=== PATIENT | male | born 1940 | race Caucasian/White ===

== ENCOUNTER 2018-09-26 01:27 | Emergency (ER) | payer MEDICARE, OTHER ==
[2018-09-26 01:36] VITALS: PULSE 63; TEMP 98.2
[2018-09-26] MEDS ORDERED: SODIUM CHLORIDE 0.9% 500 ML 500 ML IV STA (02:05)
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
[2018-09-26 02:50] LABS: Basophils # (A) 0.1 k/uL (0-0.2); Basophils % (A) 1 %; Eosinophils # (A) 0.3 k/uL (0-0.7); Eosinophils % (A) 5 %; HCT 41.5 % (39.0-53.0); HGB 14.1 gm/dL (13.0-17.5); Lymphocytes # (A) 1.4 k/uL (1.0-4.8); Lymphocytes % (A) 25 %; MCH 33.6 pg (25.0-35.0); MCHC 34.1 g/dL (31.0-37.0); MCV 98.7 fL (80.0-100.0); Monocytes # (A) 0.3 k/uL (0-1.0); Monocytes % (A) 5 %; Neutrophils # (A) 3.4 k/uL (1.3-7.7); Neutrophils % (A) 61 %; Platelet Count 206 k/uL (150-450); RDW 13.1 % (11.5-15.5); WBC 5.6 k/uL (3.8-10.6)
[2018-09-26 03:07] LABS: ALT 33 U/L (21-72); AST 26 U/L (17-59); Albumin 3.8 g/dL (3.5-5.0); Alkaline Phosphatase 52 U/L (38-126); Amylase 52 U/L (30-110); Anion Gap 7 mmol/L; Blood Urea Nitrogen 20 mg/dL (9-20); Calcium 9.3 mg/dL (8.4-10.2); Carbon Dioxide 25 mmol/L (22-30); Chloride 110 mmol/L (98-107); Glucose 100 mg/dL (74-99); Lipase 87 U/L (23-300); Potassium 4.2 mmol/L (3.5-5.1); Sodium 142 mmol/L (137-145); Total Bilirubin 1.3 mg/dL (0.2-1.3); Total Protein 6.5 g/dL (6.3-8.2)
[2018-09-26 03:57] VITALS: BP 218/98; RESP 20
--- NOTE | 2018-09-26 03:58 | CT ---
EXAMINATION TYPE: CT abdomen pelvis w con DATE OF EXAM: 09/26/2018 COMPARISON: None HISTORY: Rt lower back/abd pain CT DLP: 628.40 mGycm Automated exposure control for dose reduction was used. TECHNIQUE: Helical acquisition of images was performed from the lung bases through the pelvis. CONTRAST: Performed without Oral Contrast and with IV Contrast, patient injected with 100 mL of Isovue 300. FINDINGS: There is some mild infiltrate and atelectasis at the posterior lung bases. Heart appears slightly enl arged. There is no pericardial effusion. There is no pleural effusion. Liver spleen pancreas gallbladder appear normal. Bile ducts are not dilated. Stomach has normal size and contour. There is no adrenal mass. Kidneys show satisfactory contrast opacification. There is mild renal corti natalio thinning. There are multiple bilateral renal calculi that measure up to 6 mm. There is no hydrone phrosis. Ureters are not dilated. There is no retroperitoneal adenopathy. Abdominal aorta is atheroma tous. Bladder distends smoothly. Prostate is mildly enlarged and measures 5 cm. There is prostatic ca lcification. There is no inguinal hernia. There is no free fluid in the pelvis. There is no evidence of a bowel obstruction. I see no intestinal wall thickening. There is no evidence of free air. There is no ascites. There is multilevel spondylotic changes in the lumbar spine. There is mild lumbar dext roscoliosis. Appendix is not seen. There is no sign of appendicitis. IMPRESSION: MULTIPLE NONOBSTRUCTING RENAL CALCULI. ATHEROSCLEROTIC VASCULAR DISEASE. MULTILEVEL LUMBAR SPONDYLOTI C CHANGE. NO FRACTURE. MILD INFILTRATES AND ATELECTASIS AT THE LUNG BASES.
[2018-09-26] MEDS ORDERED: ACET/COD 300 MG/30 MG STARTER PACK 6 TAB BTL PO STA (04:06)
[2018-09-26 04:14] LABS: Appearance,Urine Clear (Clear); Bilirubin,Urine Negative (Negative); Blood,Urine Negative (Negative); Color,Urine Yellow; Glucose,Urine (UA) Negative (Negative); Ketones,Urine Negative (Negative); Leukocyte Esterase,Urine Negative (Negative); Nitrite,Urine Negative (Negative); Protein,Urine Trace (Negative); Specific Gravity,Urine 1.034 (1.001-1.035); Urobilinogen,Urine <2.0 mg/dL (<2.0)
== END 2018-09-26 04:43 | disposition home or self-care (01) ==
LOC: EC 01:27
DX: M54.5 Low back pain (principal); N20.0 Calculus of kidney; I70.0 Atherosclerosis of aorta; M47.816 Spondylosis without myelopathy or radiculopathy, lumbar region; J98.11 Atelectasis; R91.8 Other nonspecific abnormal finding of lung field
CPT/HCPCS: 36415; 80053; 82150; 83605; 83690; 85025; 81003; 74177; 99284; 96360; 96361; Q9967

== ENCOUNTER 2021-01-01 15:55 | Inpatient (IN) | payer MEDICARE, OTHER ==
[2021-01-01 16:21] LABS: Glucose,Whole Blood 94 mg/dL (75-99)
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
[2021-01-01 16:34] LABS: Basophils # (A) 0.1 k/uL (0-0.2); Basophils % (A) 1 %; Eosinophils # (A) 0.3 k/uL (0-0.7); Eosinophils % (A) 4 %; HCT 40.8 % (39.0-53.0); Lymphocytes # (A) 1.4 k/uL (1.0-4.8); Lymphocytes % (A) 20 %; MCH 34.5 pg (25.0-35.0); MCHC 34.4 g/dL (31.0-37.0); MCV 100.3 fL (80.0-100.0); Mean Platelet Volume 7.3; Monocytes # (A) 0.4 k/uL (0-1.0); Monocytes % (A) 6 %; Neutrophils # (A) 4.9 k/uL (1.3-7.7); Neutrophils % (A) 68 %; Platelet Count 253 k/uL (150-450); RBC 4.07 m/uL (4.30-5.90); WBC 7.2 k/uL (3.8-10.6)
[2021-01-01 16:44] LABS: INR 0.9 (<1.2); Partial Thromboplastin Time 23.2 sec (22.0-30.0); Prothrombin Time 10.2 sec (9.0-12.0)
[2021-01-01 16:48] LABS: Albumin 4.4 g/dL (3.5-5.0); Calcium 9.3 mg/dL (8.4-10.2); Potassium 4.7 mmol/L (3.5-5.1); Total Bilirubin 0.9 mg/dL (0.2-1.3); Total Protein 7.4 g/dL (6.3-8.2)
--- NOTE | 2021-01-01 17:10 | CT ---
EXAMINATION TYPE: CT brain wo con for TPA DATE OF EXAM: 01/01/2021 COMPARISON: None HISTORY: Weakness and fatigue per patient family. CT DLP: 1103.4 mGycm Automated exposure control for dose reduction was used. There is cerebral cortical atrophy. There is hypodensity in the periventricular white matter. There i s no mass effect nor mid line shift. There is no sign of intracranial hemorrhage. Calvarium is intact . Skull base is intact. There is normal aeration of the mastoid sinuses. IMPRESSION: Cerebral atrophy and chronic small vessel ischemia. No acute intracranial abnormality.
--- NOTE | 2021-01-01 17:11 | XR ---
EXAMINATION TYPE: XR chest 2V DATE OF EXAM: 01/01/2021 COMPARISON: NONE HISTORY: Altered mental status TECHNIQUE: 2 views FINDINGS: There is no heart failure nor confluent pneumonic infiltrate. Costophrenic angles are clear . There are no hilar masses. Thoracic aorta is atheromatous. IMPRESSION: No active cardiopulmonary disease. Atheromatous aorta.
[2021-01-01 17:28] LABS: Appearance,Urine Clear (Clear); Bilirubin,Urine Negative (Negative); Blood,Urine Negative (Negative); Color,Urine Yellow; Glucose,Urine (UA) Negative (Negative); Ketones,Urine Negative (Negative); Leukocyte Esterase,Urine Negative (Negative); Nitrite,Urine Negative (Negative); PH, Urine 6.5 (5.0-8.0); Protein,Urine Negative (Negative); Specific Gravity,Urine 1.014 (1.001-1.035); Urobilinogen,Urine <2.0 mg/dL (<2.0)
[2021-01-01] MEDS ORDERED: ASPIRIN 325 MG TAB PO STA (18:24)
[2021-01-01] MEDS: SODIUM CHLORIDE 0.9% 1,000 ML IV SCH (18:49)
--- NOTE | 2021-01-01 21:28 | US ---
EXAMINATION TYPE: US carotid duplex BILAT DATE OF EXAM: 01/01/2021 COMPARISON: CT Brain. CLINICAL HISTORY: Stenosis. Stenosis per order. Hx hypertension. EXAM MEASUREMENTS: RIGHT: Peak Systolic Velocity (PSV) cm/sec ----- Right CCA: 62.2 ----- Right ICA: 123.6 ----- Right ECA: 123.2 ICA/CCA ratio: 2.0 RIGHT: End Diastole cm/sec ----- Right CCA: 15.1 ----- Right ICA: 40.3 ----- Right ECA: 8.6 LEFT: Peak Systolic Velocity (PSV) cm/sec ----- Left CCA: 93.8 ----- Left ICA: 70.9 ----- Left ECA: 62.2 ICA/CCA ratio: 0.8 LEFT: End Diastole cm/sec ----- Left CCA: 21.2 ----- Left ICA: 17.7 ----- Left ECA: 7.2 VERTEBRALS (direction of flow): Right Vertebral: Antegrade Left Vertebral: Antegrade Rhythm: Arrhythmia Plaque visualized within bilateral CCA, bilateral bulb, bilateral ICA, and bilateral ECA. Multiple EC A branches seen on the left. No elevated velocities at this time. ICA/CCA ratio on the right is 2.0 a nd ICA/CCA ratio on the left is 0.8. IMPRESSION: There is borderline elevated velocity in the right internal carotid artery that is suggestive of clos ed to 50% stenosis of the right internal carotid artery. There is antegrade flow in the vertebral arteries. Criteria for Assigning % of Stenosis / Diameter reduction (Estimation based on the indirect measurements of the internal carotid artery velocities (ICA PSV). 1. Normal (no stenosis)=ICA PSV < 125 cm/s: ratio < 2.0: ICA EDV<40 cm/s. 2. Less than 50% stenosis=ICA PSV < 125 cm/s: ratio < 2.0: ICA EDV<40 cm/s. 3. 50 to 69% stenosis=ICA PSV of 125 to 230 cm/s: ration 2.0 ? 4.0: ICA EDV 40-100 cm/s. 4. Greater than 70% stenosis to near occlusion= ICA PSV > 230 cm/s: ratio > 4.0: ICA EDV > 100 cm/s. 5. Near occlusion= ICA PSV velocities may be low or undetectable: variable ratio and ICA EDV. 6. Total occlusion=unable to detect flow.
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
[2021-01-02 03:51] LABS: Cholesterol 178 mg/dL (<200); HDL Cholesterol 52 mg/dL (40-60); LDL Cholesterol,Calculated 109 mg/dL (0-99); Triglycerides 83 mg/dL (<150)
[2021-01-02] MEDS: SODIUM CHLORIDE 0.9% 1,000 ML IV SCH ×2 (06:05→17:42)
[2021-01-02] MEDS: LOSARTAN 50 MG TAB PO SCH (09:32)
[2021-01-02] MEDS: HEPARIN SODIUM,PORCINE/PF 5,000 UNIT/0.5 ML SYRINGE SQ SCH ×3 (09:33→23:50)
[2021-01-02 09:47] LABS: Basophils # (A) 0.1 k/uL (0-0.2); Basophils % (A) 1 %; Eosinophils # (A) 0.2 k/uL (0-0.7); Eosinophils % (A) 3 %; HCT 40.8 % (39.0-53.0); HGB 13.5 gm/dL (13.0-17.5); Lymphocytes # (A) 1.3 k/uL (1.0-4.8); Lymphocytes % (A) 18 %; MCH 33.6 pg (25.0-35.0); MCHC 33.1 g/dL (31.0-37.0); MCV 101.6 fL (80.0-100.0); Macrocytosis Slight; Mean Platelet Volume 7.3; Monocytes # (A) 0.3 k/uL (0-1.0); Monocytes % (A) 4 %; Neutrophils # (A) 5.3 k/uL (1.3-7.7); Neutrophils % (A) 73 %; Platelet Count 253 k/uL (150-450); RBC 4.02 m/uL (4.30-5.90); RDW 13.2 % (11.5-15.5); WBC 7.2 k/uL (3.8-10.6)
[2021-01-02 09:53] LABS: Calcium 9.2 mg/dL (8.4-10.2); Magnesium 2.1 mg/dL (1.6-2.3); Potassium 4.5 mmol/L (3.5-5.1)
--- NOTE | 2021-01-02 12:00 | ECHOF ---
Referral Reason:Thrombus MEASUREMENTS -------- HEIGHT: 157.5 cm WEIGHT: 58.1 kg BP: 160/79 RVIDd: 3.0 cm (< 3.3) IVSd: 1.3 cm (0.6 - 1.1) LVIDd: 3.3 cm (3.9 - 5.3) LVPWd: 1.6 cm (0.6 - 1.1) IVSs: 1.9 cm LVIDs: 1.7 cm LVPWs: 2.2 cm LAESV Index (A-L): 26.14 ml/m Ao Diam: 3.3 cm (2.0 - 3.7) AV Cusp: 1.7 cm (1.5 - 2.6) MV E Rohan: 0.78 m/s MV DecT: 309 ms MV A Rohan: 0.87 m/s MV E/A Ratio: 0.90 AV maxP.26 mmHg AV meanP.40 mmHg RAP: 5.00 mmHg RVSP: 20.70 mmHg FINDINGS -------- Sinus rhythm. This was a technically adequate study. The left ventricular size is normal. There is mild concentric left ventricular hypertrophy. Overa ll left ventricular systolic function is normal with, an EF between 55 - 60 %. The right ventricle is normal in size. Normal LA size by volume 22+/-6 ml/m2. The right atrium was not well visualized. Interatrial and interventricular septum intact. Trace to mild aortic regurgitation. There is moderate aortic stenosis present. Peak/mean gradient across the Aortic Valve is 37.26mmHg / 20.40mmHg. Mild mitral annular calcification present. Mild mitral regurgitation is present. Mild tricuspid regurgitation present. There is no evidence of pulmonary hypertension. The right v entricular systolic pressure, as measured by Doppler, is 20.70mmHg. There is no pulmonic regurgitation present. The aortic root size is normal. IVC Not well visulized. There is no pericardial effusion. CONCLUSIONS -------- 1. The left ventricular size is normal. 2. There is mild concentric left ventricular hypertrophy. 3. Overall left ventricular systolic function is normal with, an EF between 55 - 60 %. 4. Trace to mild aortic regurgitation. 5. There is moderate aortic stenosis present. 6. Peak/mean gradient across the Aortic Valve is 37.26mmHg / 20.40mmHg. 7. Mild mitral annular calcification present. 8. Mild mitral regurgitation is present. 9. Mild tricuspid regurgitation present. SERVICE ORDER CLERK: Shireen Turner RDCS
--- NOTE | 2021-01-02 14:37 | MR ---
EXAMINATION TYPE: MR brain wo/w con DATE OF EXAM: 01/02/2021 COMPARISON: 01/01/2021 HISTORY: Confusion, CVA CONTRAST: Performed utilizing 6 mL intravenous Gadavist gadolinium contrast. TECHNIQUE: Multiplanar, multiecho imaging on a 3.0 Lin magnet is performed through the brain. Stud y is performed within 24 hours of arrival to the hospital. The craniovertebral junction is normal. The pituitary is normal. Diffusion-weighted imaging is performed. There are scattered small hyperintensities within the thala mus inferior left occipital and posterior parietal lobes and within the bilateral occipital lobes. On T2-weighted sequences there is patchy to confluent periventricular white matter hyperintensities w ith additional scattered hyperintensities within subcortical white matter and brainstem. No suspicious enhancement is evident. Ventricles and sulci are prominent for the patient age. IMPRESSIONS: 1. Scattered hyperintensities predominantly within the left thalamus, posterior left parietal, left o ccipital region with additional punctate area on the right occipital region. Small foci of acute isch emic changes should be considered. 2. Atrophy with confluent periventricular white matter ischemic-type changes.
[2021-01-02 16:13] LABS: Hemoglobin A1C 5.1 % (4.0-6.0)
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
[2021-01-02] MEDS: CLOPIDOGREL 75 MG TAB PO SCH (17:36)
[2021-01-02] MEDS: ATORVASTATIN 40 MG TAB PO SCH (21:26)
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
[2021-01-03] MEDS: CLOPIDOGREL 75 MG TAB PO SCH (08:41)
[2021-01-03] MEDS: ASPIRIN 325 MG TAB PO SCH (08:41)
[2021-01-03] MEDS: LOSARTAN 50 MG TAB PO SCH (08:41)
[2021-01-03] MEDS: HEPARIN SODIUM,PORCINE/PF 5,000 UNIT/0.5 ML SYRINGE SQ SCH ×3 (08:41→22:52)
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
[2021-01-03] MEDS: ATORVASTATIN 40 MG TAB PO SCH (20:20)
[2021-01-04] MEDS: CLOPIDOGREL 75 MG TAB PO SCH (08:08)
[2021-01-04] MEDS: hydrALAZINE HCL 25 MG TAB PO SCH ×2 (08:08→20:44)
[2021-01-04] MEDS: ASPIRIN 325 MG TAB PO SCH (08:08)
[2021-01-04] MEDS: HEPARIN SODIUM,PORCINE/PF 5,000 UNIT/0.5 ML SYRINGE SQ SCH ×3 (08:08→23:26)
[2021-01-04] MEDS: LOSARTAN 50 MG TAB PO SCH (08:08)
--- NOTE | 2021-01-04 08:30 | CONS ---
CONSULTATION HISTORY OF PRESENT ILLNESS: Sanjeev Serra the 80-year-old gentleman who came in with acute confusional state and a diagnosis was made of an acute CVA, probably of an embolic type CVA involving the left thalamus, left occipital and parietal lobes with confusion and altered behavior. However, the patient is more comfortable now. His blood pressure is still a little bit elevated, but he seems to be more calmer and answers questions fairly appropriately. He has underlying problems in the form of hypertension, hyperlipidemia, mild to moderate aortic stenosis. The stroke is fairly acute based on the MRI. He is resting comfortably without symptoms. He has no chest pain or shortness of breath and his confusion also seems to be much better. PAST MEDICAL HISTORY: 1. Hypertension. 2. Hyperlipidemia. 3. Aortic stenosis, probably moderate. 4. No evidence of prior IA or CVA. 5. Past medical history is remarkable for a previous TIA as well, although details are unclear. 6. He has no documented evidence of atrial fibrillation and no major surgeries. This patient also had an echocardiogram on Tuesday, which revealed normal LV size and systolic function with mild to moderate aortic stenosis, a mean gradient of 20 mmHg without pulmonary hypertension. PHYSICAL EXAMINATION: On examination, blood pressure is 160/80, pulse rate is about 80 per minute, regular. HEENT unremarkable. Fundus was not examined by me. NECK is supple. There is no JVD. HEART exam reveals S1, S2 with ejection systolic murmur suggestive of aortic stenosis. Second heart sound is preserved. LUNGS reveal decent air entry. ABDOMEN is soft. Lower EXTREMITIES reveal diminished pulses. CENTRAL NERVOUS SYSTEM exam was not performed in detail, but no motor deficits. EKG revealed sinus mechanism, left axis, IVCD, LVH. IMPRESSION: 1. Acute ischemic stroke, probably embolic. No evidence of atrial fibrillation. Carotid Doppler does not suggest a significant disease. 2. Hypertension. 3. Hyperlipidemia. 4. History of aortic stenosis, moderate. RECOMMENDATIONS: I agree with losartan, atorvastatin, aspirin and Plavix. I will add a small dose of hydralazine 25 mg b.i.d. I will arrange for a transesophageal echo for Tuesday. I explained this to the patient. He will also need a 30 day event monitor as well. Thank you very much for the consult. MMODL / IJN: [id number] /
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
--- NOTE | 2021-01-04 14:37 | PN ---
PROGRESS NOTE Mr. Serra is doing okay. He is in sinus rhythm. Neurological there are no focal deficits. His confusion is better. Given his possible embolic stroke, we will do a transesophageal echo tomorrow. I will request Dr. Huber to perform procedure. Vitals are stable. No JVD. S1-S2 heard normally. Short systolic murmur noted. Rhythm is regular. Lungs are clear. Abdomen and lower extremity exam unchanged. I would recommend a transesophageal echo and a 30 day event monitor for this patient. I discussed my thoughts in detail with him and will request Dr. Huber to perform the procedure. MMODL / IJN: [id number] /
--- NOTE | 2021-01-04 17:42 | P.PN ---
Subjective Progress Note Date: 01/04/21 The patient is an 80-year-old male who is seen in neurologic follow-up on January 04, 2021, via teleneurology. The patient's chart has been reviewed. According to the patient's nurse, the patient has been doing well. He is apparently at his baseline cognitive function. He has been up walking without assistance, to the bathroom. She reports that he was slightly unsteady, however did not require any assistance. MRI of the brain reveals bilateral focal, acute infarcts thought to be embolic in etiology. Patient is scheduled for a transesophageal echocardiogram, tomorrow morning (January 05, 2021). The patient reports feeling fine today. The patient denies headache. Objective - Vital Signs Vital signs: Vital Signs Temp 98.3 F 01/04/21 15:44 Pulse 63 01/04/21 15:44 Resp 17 01/04/21 15:44 BP 134/64 01/04/21 15:44 Pulse Ox 97 01/04/21 15:44 Intake & Output 01/03/21 01/04/21 01/04/21 18:59 06:59 18:59 Intake Total 1520 480 Balance 1520 480 Weight 56.2 kg Intake: Oral 1520 480 Other: # Voids 1 3 # Bowel Movements 0 - Exam Gen.: Patient is reclining in the bed. He is in no acute distress. He is a thin male. HEENT: Head is atraumatic, normocephalic. Fundus not visualized. There is no scleral icterus. Mucous membranes are moist. Neurological examination Motor: Strength is 5/5 throughout. Coordination: Ctvzjo-ncal-ykolhg and unwz-gn-jrms testing is intact - Labs CBC & Chem 7: 01/02/21 09:19 01/02/21 09:19 Assessment and Plan Assessment: 1. Bilateral focal, acute ischemic infarcts, likely embolic in etiology 2. History of stroke/TIA 3. History of hypertension 4. No reported history of atrial fibrillation Plan: 1. Await transesophageal echocardiogram results 2. Agree with Holter monitor and/or a loop recorder if needed Time with Patient: Less than 30 (spent 20 minutes with patient via teleneurology)
[2021-01-04] MEDS: ATORVASTATIN 40 MG TAB PO SCH (20:44)
[2021-01-05] MEDS: ASPIRIN 325 MG TAB PO SCH (08:57)
[2021-01-05] MEDS: hydrALAZINE HCL 25 MG TAB PO SCH (08:57)
[2021-01-05] MEDS: LOSARTAN 50 MG TAB PO SCH (08:57)
[2021-01-05] MEDS: HEPARIN SODIUM,PORCINE/PF 5,000 UNIT/0.5 ML SYRINGE SQ SCH ×3 (08:57→23:37)
[2021-01-05] MEDS: CLOPIDOGREL 75 MG TAB PO SCH (08:57)
[2021-01-05] MEDS ORDERED: SODIUM CHLORIDE 0.9% 500 ML 500 ML IV ONE (10:00)
[2021-01-05] MEDS: BENZOCAINE SPRAY 1 CAN MUCOUS MEM ONE ×2 (10:01→10:06)
[2021-01-05] MEDS: MIDAZOLAM 2 MG/2 ML VIAL IV ONE ×2 (10:05→10:07)
[2021-01-05] MEDS ORDERED: fentaNYL (PF) 50 MCG/ML 2 ML AMP IV ONE (10:05)
--- NOTE | 2021-01-05 10:42 | P.TEE ---
Date of Procedure: 01/05/21 Preoperative Diagnosis: CVA/TIA Postoperative Diagnosis: Moderate aortic stenosis/moderate aortic regurgitation Procedure(s) Performed: DAVE Description of Procedure(s): INDICATION: This is a 80-year-old gentleman was admitted to the hospital with CVA. Patient is advised to have DAVE examination to rule out any Cardec source of emboli . Transthoracic echo [place] showed moderate aortic stenosis CONSENT:. Informed verbal consent is obtained from the patient. PROCEDURE: Patient was brought to the lab in a fasting state. He was prepped and draped in the usual fashion. A lubricated Omni probe was introduced into the oropharynx, which was sprayed with Cetacaine. The probe was advanced into the esophagus and multiple views were obtained both from esophagus and stomach. Patient tolerated the procedure well. Color, pulsed and continuous wave Doppler studies were performed. Saline contrast bubble injection is performed. Procedure time was 11 minutes. Patient was given Versed 2 mg and fentanyl 25 g FINDINGS:. The aortic valve is sclerotic with thickened leaflets and reduced opening excursion. By planimetry valve area of about 1-1.1 was obtained suggestive of moderate aortic stenosis. Peak gradient of 54 with a mean of 23 was obtained, again consistent with moderate aortic stenosis. There is moderate central aortic regurgitation. Mild mitral regurgitation with mildly thickened mitral valves. The left atrial appendage is free of any clot. The interatrial septum is intact without any spontaneous shunt. Injection was contrast bubble did not show any crossing of the bubbles across septum. The left ventricle function appear to be normal. The atrial size appeared within normal. There is a mixed plaque in the aorta which is moderate IMPRESSION: #1. Moderate aortic stenosis/moderate aortic regurgitation. #2. Mild mitral regurgitation. #3. No clot in the left atrial appendage. #4. No PFO #5. Left ankle function is normal. #6. There is a mixture plaque in the aorta which is moderate PLAN: Generic maximum medical therapy. Serial echoes for progressive of aortic stenosis
[2021-01-05] MEDS ORDERED: SODIUM CHLORIDE 0.9% 1,000 ML IV SCH (10:45)
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
[2021-01-05] MEDS: hydroCHLOROthiazide 12.5 MG CAP PO SCH (14:07)
--- NOTE | 2021-01-05 15:16 | P.PN ---
Subjective This is a 80-year-old gentleman with a past medical history of hypertension was admitted to the hospital for acute confusional state. Found to have acute CVA, probably of embolic type CVA involving the left thalamus, left occipital and parietal lobes. We have been consult for DAVE procedure to rule out any Cardec source of emboli . Transthoracic echo Cardigan showed EF 55-60%, moderate aortic stenosis with a peak/mean gradient 37 mmHg/20.4 mmHg, moderate mitral regurgitation, mild tricuspid regurgitation. Patient has not had any evidence on telemetry of atrial fibrillation while inpatient. MRI of the brain revealed scattered hyperintensities within the left thalamus, posterior left parietal, left occipital region with additional area of the right occipital region. Small foci of acute ischemic changes should be considered. Carotid dopplers negative for high grade stenosis 01/05/21: Patient underwent DAVE with Dr. Huber today which revealed moderate aortic stenosis/moderate aortic regurgitation, mild mitral regurgitation, no clot in the left atrial appendage, no PFO, there is a mixture plaque in the aorta which is moderate. Patient seen and examined at bedside, no acute distress. Blood pressure 135/68, heart rate 60s, maintaining oxygen saturations 96% on room air. Telemetry reviewed patient continues to be in sinus mechanism, no evidence of atrial fibrillation or arrhythmia. GENERAL: Well-appearing, well-nourished and in no acute distress. NECK: Supple without JVD or thyromegaly. LUNGS: Breath sounds clear to auscultation bilaterally. Respiration equal and unlabored. No wheezes, rales or rhonchi. HEART: Regular rate and rhythm. Systolic murmur noted. No rubs or gallops. S1 and S2 heard. EXTREMITIES: Normal range of motion, no edema. No clubbing or cyanosis. Peripheral pulses intact. ASSESSMENT Acute ischemic stroke- per neuro MRI brain is suggestive of cardioembolism Elevated troponin not indicative of myocardial injury Hypertension Hyperlipidemia Moderate aortic stenosis PLAN Will start hydrochlorothiazide 12.5mg daily Continue losartan 100mg daily Patient also started on aspirin, plavix and statin Patient would benefit from a loop recorder before discharge to rule out atrial fibrillation. We will discuss with patient and plan a time for insertion, possibly tomorrow. Maintain cardiac telemetry Nurse Practitioner note has been reviewed, I agree with a documented findings and plan of care. Patient was seen and examined. Objective - Vital Signs Vital signs: Vital Signs Temp 98.1 F 01/05/21 08:00 Pulse 60 01/05/21 11:19 Resp 21 01/05/21 10:18 BP 160/72 01/05/21 12:00 Pulse Ox 96 01/05/21 11:19 Intake & Output 01/04/21 01/05/21 01/05/21 18:59 06:59 18:59 Intake Total 720 100 Balance 720 100 Weight 57 kg Intake: IV 100 Oral 720 0 Other: # Voids 1 # Bowel Movements 0 - Labs CBC & Chem 7: 01/02/21 09:19 01/02/21 09:19
--- NOTE | 2021-01-05 18:29 | P.PN ---
Subjective Progress Note Date: 01/05/21 I am Seeing the patient for the first time. Please refer to Dr. Waters's note as well as Dr. Simmons's notes for detailed neurology history. He feels he is doing fairly well and denies any new neurological problems. He had a transesophageal echocardiogram today and it is reported as moderate aortic stenosis last moderate aortic regurgitation. Mild mitral regurgitation. No clot in the left atrial appendage. No PFO. There is a mixture plaque in the aorta which is moderate. Objective - Vital Signs Vital signs: Vital Signs Temp 98.1 F 01/05/21 08:00 Pulse 60 01/05/21 11:19 Resp 21 01/05/21 10:18 BP 160/72 01/05/21 12:00 Pulse Ox 96 01/05/21 11:19 Intake & Output 01/04/21 01/05/21 01/05/21 18:59 06:59 18:59 Intake Total 720 318 Balance 720 318 Weight 57 kg Intake: IV 100 Oral 720 218 Other: # Voids 1 2 # Bowel Movements 0 - Exam Gen.: Patient is reclining in the bed. He is in no acute distress. He is a thin male. Neurological examination Higher mental function: The patient is awake, alert but somehwat slow in menta tion and latency time to answer question. He is oriented to self, knows he is in hospital but does not know year (stated it was 2013). Follow simple commands. No aphasia. On cranial examination, pupils are round and reacting to light, visual [place]wood are full on confrontation, extraocular muscles are intact with no nystagmus. Facial sensation normal. Face is symmetric, tongue protrudes to the midline. Moderate hard of hearing over bilateral ears. No dysarthria. Shoulder shrug normal. Motor: Strength is 5/5 throughout. Tone and bulk are normal Sensory: To light touch is equal and no neglect. Coordination: [id number] and [id number] testing is intact Reflexes: 1+ throughout. - Labs CBC & Chem 7: 01/02/21 09:19 01/02/21 09:19 Assessment and Plan Assessment: 1. Bilateral focal, acute ischemic infarcts, likely embolic in etiology 2. History of stroke/TIA 3. History of hypertension 4. No reported history of atrial fibrillation Plan: * MRI of the brain confirmed acute stroke. There are scattered hyperintensities predominantly within the left thalamus, posterior left parietal, left occipital region with additional punctate area on the right occipital region. The strokes involved bilateral hemispheric region, therefore is most likely embolic in nature. Need to identify cardiac source of cerebral embolism. * He had a transesophageal echocardiogram today and it is reported as moderate aortic stenosis last moderate aortic regurgitation. Mild mitral regu rgitation. No clot in the left atrial appendage. No PFO. There is a mixture plaque in the aorta which is moderate. * Carotid Doppler revealed borderline elevated velocity in the right ICA suggestive of close to 50% stenosis. Antegrade flow in the vertebral arteries. * Hemoglobin A1c 5.1 * Lipid panel with cholesterol 178, LDL 109, HDL 52 and triglycerides 83. Agree with starting Lipitor 40 mg. * PT and OT evaluate gait. Speech therapy. * Patient was on aspirin 81 mg daily. Continue dual antiplatelet medication. After 3 weeks, stop aspirin and maintain on Plavix monotherapy. Continue Lipitor 40mg qhs. * I recommend a Holter monitor/and or loop recorder and the patient needs to follow up with cardiology as an outpatient. * The patient needs to follow-up with a neurologist as outpatient within 1-2 weeks. Daniel Beard MD Neuro-Hospitalist Time with Patient: Less than 30
[2021-01-05] MEDS: ATORVASTATIN 40 MG TAB PO SCH (20:14)
[2021-01-05 20:19] VITALS: RESP 18
[2021-01-06] MEDS ORDERED: SODIUM CHLORIDE 0.9% 1,000 ML IV SCH ×2 (07:00)
[2021-01-06 08:43] LABS: Basophils # (A) 0.1 k/uL (0-0.2); Basophils % (A) 1 %; Eosinophils # (A) 0.1 k/uL (0-0.7); Eosinophils % (A) 1 %; HCT 41.7 % (39.0-53.0); Lymphocytes # (A) 1.1 k/uL (1.0-4.8); Lymphocytes % (A) 12 %; MCH 34.6 pg (25.0-35.0); MCHC 33.6 g/dL (31.0-37.0); Macrocytosis Slight; Mean Platelet Volume 7.2; Monocytes # (A) 0.5 k/uL (0-1.0); Monocytes % (A) 6 %; Neutrophils # (A) 7.7 k/uL (1.3-7.7); Neutrophils % (A) 80 %; Platelet Count 234 k/uL (150-450); RBC 4.05 m/uL (4.30-5.90); WBC 9.7 k/uL (3.8-10.6)
[2021-01-06 08:54] LABS: Calcium 9.1 mg/dL (8.4-10.2); Potassium 4.4 mmol/L (3.5-5.1)
[2021-01-06] MEDS ORDERED: ASPIRIN 81 MG PO SCH (09:00)
[2021-01-06] MEDS: CLOPIDOGREL 75 MG TAB PO SCH (09:18)
[2021-01-06] MEDS: hydroCHLOROthiazide 12.5 MG CAP PO SCH (09:18)
[2021-01-06] MEDS: HEPARIN SODIUM,PORCINE/PF 5,000 UNIT/0.5 ML SYRINGE SQ SCH (09:18)
[2021-01-06] MEDS: LOSARTAN 50 MG TAB PO SCH (09:18)
[2021-01-06 10:40] VITALS: TEMP 98
[2021-01-06] MEDS ORDERED: MIDAZOLAM 2 MG/2 ML VIAL IV ONE (11:10)
[2021-01-06] MEDS ORDERED: LIDOCAINE 1% INJ 10MG/ML (20 ML MDV) SQ ONE (11:14)
--- NOTE | 2021-01-06 11:28 | P.PN ---
Subjective This is a 80-year-old gentleman with a past medical history of hypertension was admitted to the hospital for acute confusional state. Patient does not follow with a pecan huller. Found to have acute CVA, probably of embolic type CVA involving the left thalamus, left occipital and parietal lobes. We have been consult for DAVE procedure to rule out any Cardec source of emboli . Transthoracic echo Cardigan showed EF 55-60%, moderate aortic stenosis with a peak/mean gradient 37 mmHg/20.4 mmHg, moderate mitral regurgitation, mild tricuspid regurgitation. Patient has not had any evidence on telemetry of atrial fibrillation while inpatient. MRI of the brain revealed scattered hyperintensities within the left thalamus, posterior left parietal, left occipital region with additional area of the right occipital region. Small foci of acute ischemic changes should be considered. Carotid dopplers negative for high grade stenosis 01/05/21: Patient underwent DAVE with Dr. Huber today which revealed moderate aortic stenosis/moderate aortic regurgitation, mild mitral regurgitation, no clot in the left atrial appendage, no PFO, there is a mixture plaque in the aorta which is moderate. Patient seen and examined at bedside, no acute distress. Blood pressure 135/68, heart rate 60s, maintaining oxygen saturations 96% on room air. Telemetry reviewed patient continues to be in sinus mechanism, no evidence of atrial fibrillation or arrhythmia. 01/06/21: Patient seen and examined at bedside, no acute distress, plan for loop recorder today. Patient is alert and oriented to person and place. Blood pressure 158/74, heart rate 61, afebrile, maintaining saturations 96% on room air. Telemetry reviewed patient continues to be in sinus mechanism heart rate 50 to 60s, no evidence of atrial fibrillation or arrhythmia. Patient currently maintained on aspirin 81 mg daily, atorvastatin 40 mg nightly, Plavix 75 mg daily, hydrochlorothiazide 12.5 mg daily, losartan 100 mg daily. Laboratory data reviewed sodium 139, potassium 4.4, serum creatinine 1.17, BUN 20, magnesium 2.0, WBC 9.7, hemoglobin 14, platelets 234 GENERAL: Well-appearing, well-nourished and in no acute distress. Appears comfortable NECK: Supple without JVD or thyromegaly. LUNGS: Breath sounds clear to auscultation bilaterally. Respiration equal and unlabored. No wheezes, rales or rhonchi. HEART: Regular rate and rhythm. Systolic murmur noted. No rubs or gallops. S1 and S2 heard. EXTREMITIES: Normal range of motion, no edema. No clubbing or cyanosis. Peripheral pulses intact. ASSESSMENT Acute ischemic stroke- per neuro MRI brain is suggestive of cardioembolism Elevated troponin not indicative of myocardial injury Hypertension Hyperlipidemia Moderate aortic stenosis PLAN Plan for loop recorder insertion today. Spoke with patient's about procedure, risks and benefits. She agreed to proceed with loop recorder, and will consent for the patient. I have discussed the risks, benefits and alternative therapies for the loop recorder procedure with the patient and his , Bonnie, and for both sedation/analgesia as well as necessary blood product administration, if indicated, as they pertain to this patient. The has indicated understanding and acceptance of the risks and procedures discussed. Questions have been answered appropriately and and patient is agreeable to move forward with the above-stated procedure. Continue hydrochlorothiazide 12.5mg daily and losartan 100mg daily Patient also started on aspirin, plavix and statin Once medically stable for discharge, patient will follow up with Dr. Jones in the office Nurse Practitioner note has been reviewed, I agree with a documented findings and plan of care. Patient was seen and examined. Objective - Vital Signs Vital signs: Vital Signs Temp 98.0 F 01/06/21 08:00 Pulse 61 01/06/21 08:00 Resp 18 01/06/21 04:00 BP 158/74 01/06/21 08:00 Pulse Ox 96 01/06/21 08:00 Intake & Output 01/05/21 01/06/21 01/06/21 18:59 06:59 18:59 Intake Total 318 118 0 Output Total 550 Balance 318 -432 0 Weight 59.5 kg Intake: IV 100 Oral 218 118 0 Output: Urine 150 Stool 400 Other: # Voids 2 1 # Bowel Movements 3 - Labs CBC & Chem 7: 01/06/21 08:18 01/06/21 08:18 Labs: Abnormal Lab Results - Last 24 Hours (Table) 01/06/21 01/06/21 Range/Units 08:18 08:18 RBC 4.05 L (4.30-5.90) m/uL MCV 103.0 H (80.0-100.0) fL Glucose 107 H (74-99) mg/dL
--- NOTE | 2021-01-06 11:32 | P.EPPROC ---
- EP Procedure Note Electrophysiology Procedure Note: Loop monitor implant Indication: Cryptogenic stroke Patient was brought to the EP lab in a fasting state. Written informed consent was obtained prior to the procedure. The left pectoral area was prepped and draped per protocol. Intravenous antibiotic was administered preoperatively. A subcutaneous Loop monitor was implanted successfully and the wound was closed per protocol. The device was programmed to detect significant val- arrhythmic and tachy-arrhythmic events, per protocol. Device and programming details: Programming for cryptogenic stroke/A. fib detection diagnosed Patient underwent EP procedure under conscious sedation/moderate sedation, monitoring of the level of consciousness and physiologic parameters including but not limited to vital signs and oxygenation. Patient tolerated the procedure well without any acute complications. Start time: 1113 Stop time: 1127
[2021-01-06 12:39] VITALS: BMI 24.0
[2021-01-06 13:13] VITALS: BP 144/91; PULSE 60
--- NOTE | 2021-01-06 13:38 | FL ---
EXAMINATION TYPE: FL barium swallow w video DATE OF EXAM: 01/06/2021 MODIFIED SWALLOW / DEGLUTITION STUDY CLINICAL HISTORY: Dysphagia. TECHNIQUE: Deglutition study is performed utilizing thin liquid barium, honey and nectar thick liqui d barium, barium thick applesauce, and barium coated cracker. COMPARISON: None. FINDINGS: The oral and pharyngeal phases show satisfactory initiation and propagation with all modali ties tested. Normal mastication is seen with solid modalities tested. There is no evidence of penet ration or aspiration with any modality tested. No significant pharyngeal residue was appreciated. 1. 02 minutes of fluoroscopy time. No images submitted. IMPRESSION: Normal deglutition study. Please refer to speech therapist notes for further details if necessary.
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
--- NOTE | 2021-01-09 12:01 | CDI ---
Documentation Clarification Form Date: 01/09/2021 11:52:09 AM From: Shaq Toussaint Phone: Brinda Angeles [phone] Admit Date: 01/01/2021 06:24:00 PM Patient Name: Sanjeev Serra Visit Number: [id number] Discharge Date: 01/06/2021 03:55:00 PM ATTENTION: The Clinical Documentation Specialists (CDI) and [facility] Coding Staff appreciate your assistance in clarifying documentation. Please respond to the clarification below the line at the bottom and electronically sign. The CDI & [facility] Coding staff will review the response and follow-up if needed. Please note: Queries are made part of the Legal Health Record. If you have any questions, please contact the author of this message via ITS. Dr. Carlos Doan Type 2 AL is documented in the H+P. Additional clarification regarding the etiology of the Type 2 AL is requested. The discharge summary and rest of record does not list Type II AL. Patient History/Risk Factors: Elevated troponin. L anterior fasicular block. AMS. Clinical Indicators: Troponin: .040 EKG Results: L anterior fasicular block Treatment: Administered plavix Please clarify the patient had a type II AL: [ ] Type 2 AL confirmed [ X ] Type 2 AL ruled out [ ] Unable to determine [ ] Other Condition, please specify MTDD
== END 2021-01-06 15:55 | disposition home health service (06) | DRG 66 ==
LOC: EC 15:55 → 3SCARD 18:24
PROVIDERS: ADMIT Internal Medicine; ATTEND Internal Medicine
PROC: B24BZZ4 Ultrasonography of Heart with Aorta, Transesophageal (ICD-10-PCS; principal; 2021-01-05 13:15)
DX: I63.40 Cerebral infarction due to embolism of unspecified cerebral artery (principal); I10 Essential (primary) hypertension; Z79.82 Long term (current) use of aspirin; Z20.822 Contact with and (suspected) exposure to COVID-19; Z86.73 Personal history of transient ischemic attack (TIA), and cerebral infarction without residual deficits; I70.0 Atherosclerosis of aorta; E78.5 Hyperlipidemia, unspecified; I44.4 Left anterior fascicular block; I08.0 Rheumatic disorders of both mitral and aortic valves; R41.0 Disorientation, unspecified
CPT/HCPCS: 33285; 36415; 70450; 70553; 71046; 74230; 80048; 80053; 80061; 81003; 83036; 83735; 84484; 85025; 85610; 85730; 87635; 93005; 93306; 93312; 93320; 93325; 93880; 99285

== ENCOUNTER → 2022-07-08 | Outpatient (CLI) | payer MEDICARE ==
--- NOTE | 2022-07-08 15:14 | US ---
EXAMINATION TYPE: US carotid duplex BILAT DATE OF EXAM: 07/08/2022 COMPARISON: NONE CLINICAL HISTORY: I63.9 CEREBRAL INFARCTION, UNSPECIFIED. h/o stroke, no current symptoms TECHNIQUE: Carotid duplex ultrasound examination. Indirect Doppler criteria was utilized. FINDINGS: EXAM MEASUREMENTS: RIGHT: Peak Systolic Velocity (PSV) cm/sec ----- Right CCA: 44.6 ----- Right ICA: 73.8 ----- Right ECA: 54.0 ICA/CCA ratio: 1.6 RIGHT: End Diastole cm/sec ----- Right CCA: 5.3 ----- Right ICA: 15.6 ----- Right ECA: 54.0 LEFT: Peak Systolic Velocity (PSV) cm/sec ----- Left CCA: 70.0 ----- Left ICA: 44.0 ----- Left ECA: 60.1 ICA/CCA ratio: 0.6 LEFT: End Diastole cm/sec ----- Left CCA: 12.0 ----- Left ICA: 7.4 ----- Left ECA: 5.3 VERTEBRALS (direction of flow): Right Vertebral: Antegrade Left Vertebral: Antegrade Rhythm: Normal JOB SPECIFICATION WRITER NOTES: Heterogeneous plaque with no significant stenosis IMPRESSION: 1. Atheromatous plaquing without significant flow-limiting stenosis. Criteria for Assigning % of Stenosis / Diameter reduction (Estimation based on the indirect measurements of the internal carotid artery velocities (ICA PSV). 1. Normal (no stenosis)=ICA PSV < 125 cm/s: ratio < 2.0: ICA EDV<40 cm/s. 2. Less than 50% stenosis=ICA PSV < 125 cm/s: ratio < 2.0: ICA EDV<40 cm/s. 3. 50 to 69% stenosis=ICA PSV of 125 to 230 cm/s: ration 2.0 ? 4.0: ICA EDV 40-100 cm/s. 4. Greater than 70% stenosis to near occlusion= ICA PSV > 230 cm/s: ratio > 4.0: ICA EDV > 100 cm/s. 5. Near occlusion= ICA PSV velocities may be low or undetectable: variable ratio and ICA EDV. 6. Total occlusion=unable to detect flow.
== END | disposition home or self-care (01) ==
LOC: RADUSWWP 10:48
PROVIDERS: ATTEND Family Medicine
DX: I65.23 Occlusion and stenosis of bilateral carotid arteries (principal); I63.9 Cerebral infarction, unspecified
CPT/HCPCS: 93880

== ENCOUNTER 2022-09-16 10:30 | Inpatient (IN) | payer MEDICARE ==
[2022-09-16] MEDS ORDERED: SODIUM CHLORIDE 0.9% 1,000 ML IV STA (11:41)
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
[2022-09-16 12:16] LABS: Basophils # (A) 0.1 k/uL (0-0.2); Basophils % (A) 1 %; Eosinophils # (A) 0.2 k/uL (0-0.7); Eosinophils % (A) 5 %; HCT 40.4 % (39.0-53.0); HGB 13.8 gm/dL (13.0-17.5); Lymphocytes # (A) 0.9 k/uL (1.0-4.8); Lymphocytes % (A) 19 %; MCH 33.7 pg (25.0-35.0); MCHC 34.1 g/dL (31.0-37.0); MCV 98.9 fL (80.0-100.0); Mean Platelet Volume 7.7; Monocytes # (A) 0.4 k/uL (0-1.0); Monocytes % (A) 9 %; Neutrophils % (A) 63 %; Platelet Count 196 k/uL (150-450); RBC 4.08 m/uL (4.30-5.90); RDW 12.8 % (11.5-15.5); WBC 4.8 k/uL (3.8-10.6)
[2022-09-16 12:22] LABS: INR 1.1 (<1.2); Partial Thromboplastin Time 25.8 sec (22.0-30.0)
[2022-09-16 12:29] LABS: Albumin 3.9 g/dL (3.5-5.0); Calcium 8.9 mg/dL (8.4-10.2); Magnesium 2.2 mg/dL (1.6-2.3); Potassium 4.7 mmol/L (3.5-5.1); Total Bilirubin 2.3 mg/dL (0.2-1.3); Total Protein 6.6 g/dL (6.3-8.2)
[2022-09-16 12:45] LABS: T4, Free (Free Thyroxine) 0.93 ng/dL (0.78-2.19)
--- NOTE | 2022-09-16 12:48 | XR ---
EXAMINATION TYPE: XR chest 2V DATE OF EXAM: 09/16/2022 COMPARISON: 01/01/2021 INDICATION: Weakness TECHNIQUE: Frontal and lateral views of the chest are obtained. FINDINGS: The heart size is normal. The pulmonary vasculature is normal. The lungs are clear. There is increased airspace in the retrosternal region. Loop recorder overlies t he left chest. IMPRESSION: 1. No acute pulmonary process.
--- NOTE | 2022-09-16 13:07 | CT ---
EXAMINATION TYPE: CT brain wo con DATE OF EXAM: 09/16/2022 COMPARISON: 01/01/2021 HISTORY: Dementia, hx of stroke, multiple falls/weakness CT DLP: 1159.4. mGycm Automated exposure control for dose reduction was used. FINDINGS: There is diffuse low-attenuation throughout the white matter bilaterally. Focal areas of abnormal att enuation in the basal ganglia suggesting remote lacunar infarct. Calcification in the basal ganglia n oted. Moderate generalized degenerative change. Intracranial atherosclerotic changes noted. Calvarium intact. Changes of chronic sinusitis. Orbits symmetric. Craniocervical junction maintained. IMPRESSION: MODERATE DEGENERATIVE DIFFUSE NONSPECIFIC WHITE MATTER LOW ATTENUATION MOST REMOTE WHITE MATTER ISCHE DIMITRIS.
[2022-09-16] MEDS ORDERED: NALOXONE 0.4 MG/ML 1 ML VIAL IV PRN (13:22)
[2022-09-16 14:22] LABS: Appearance,Urine Clear (Clear); Bilirubin,Urine Negative (Negative); Blood,Urine Negative (Negative); Color,Urine Yellow; Glucose,Urine (UA) Negative (Negative); Ketones,Urine Negative (Negative); Leukocyte Esterase,Urine Negative (Negative); Nitrite,Urine Negative (Negative); Protein,Urine Negative (Negative); Specific Gravity,Urine 1.016 (1.001-1.035)
[2022-09-17] MEDS: SODIUM CHLORIDE 0.9% 1,000 ML IV SCH ×2 (11:19→15:30)
--- NOTE | 2022-09-17 13:15 | FL ---
Modified barium swallow. Consistencies administered: Thin, cracker, and pudding consistencies. Minimal vallecular retention th at clears with subsequent swallows involving all consistencies. No laryngeal aspiration or penetratio n. Fluoro time: 1 minute 59 seconds No images were sent to PACS. Please see speech pathology report.
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
[2022-09-17] MEDS: ATORVASTATIN 40 MG TAB PO SCH (19:50)
[2022-09-18 07:11] LABS: Basophils % (A) 1 %; Eosinophils # (A) 0.3 k/uL (0-0.7); Eosinophils % (A) 5 %; HGB 12.9 gm/dL (13.0-17.5); Lymphocytes % (A) 17 %; MCH 33.4 pg (25.0-35.0); MCHC 33.8 g/dL (31.0-37.0); Mean Platelet Volume 7.3; Monocytes # (A) 0.4 k/uL (0-1.0); Monocytes % (A) 7 %; Neutrophils # (A) 3.8 k/uL (1.3-7.7); Neutrophils % (A) 67 %; Platelet Count 173 k/uL (150-450); RBC 3.84 m/uL (4.30-5.90); RDW 12.7 % (11.5-15.5); WBC 5.7 k/uL (3.8-10.6)
[2022-09-18 07:40] LABS: Albumin 3.4 g/dL (3.5-5.0); Bilirubin,Unconjugated 2.9 mg/dL (0.0-1.1); Calcium 8.2 mg/dL (8.4-10.2); Potassium 4.1 mmol/L (3.5-5.1); Total Bilirubin 2.9 mg/dL (0.2-1.3); Total Protein 5.8 g/dL (6.3-8.2)
[2022-09-18] MEDS: TAMSULOSIN 0.4 MG CAP.ER.24H PO SCH (09:04)
[2022-09-18] MEDS: MAGNESIUM OXIDE 400 MG TAB PO SCH (09:04)
[2022-09-18] MEDS: CLOPIDOGREL 75 MG TAB PO SCH (09:04)
[2022-09-18] MEDS: METOPROLOL TARTRATE 12.5 MG TAB PO SCH (09:04)
[2022-09-18] MEDS: SODIUM CHLORIDE 0.9% 1,000 ML IV SCH (17:42)
--- NOTE | 2022-09-18 18:23 | P.PN ---
Subjective Progress Note Date: 09/18/22 81-year-old male presenting to the emergency Department with with concerns for cough and congestion. Symptoms have been present for several days. Patient does have occasional green sputum. Patient has congestion in his chest and head. Patient has severe dementia and is a poor historian. Near all history is taken from the . Patient also has been having increased falling over the past year, especially the past few days. is concerned she is no longer able to take care of him. Blood work completed in ED reveals a WBC of 4.8, hemoglobin 13.8 and platelet count of 196, sodium 137, potassium 4.7, BUN/creatinine of 24/1.3 and blood glucose of 90; total bilirubin of 2.3 CT of the head completed does not reveal any acute abnormality Chest x-ray shows no acute process EKG reveals sinus bradycardia with heart rate of 52 Objective - Vital Signs Vital signs: Vital Signs Temp 97.5 F L 09/18/22 03:20 Pulse 65 09/18/22 03:20 Resp 18 09/18/22 03:20 BP 158/86 09/18/22 03:20 Pulse Ox 99 09/18/22 09:01 FiO2 Intake & Output 09/17/22 09/18/22 09/18/22 18:59 06:59 18:59 Intake Total 930 420 Balance 930 420 Intake: Intake, IV Titration 750 Amount Sodium Chloride 0.9% 1, 750 000 ml @ 75 mls/hr IV . [id number] [facility] Rx#:[id number] Oral 180 420 Other: Voiding Method Diaper Diaper Incontinent Incontinent # Voids 2 - Exam PHYSICAL EXAMINATION: GENERAL: The patient is alert and oriented x3, not in any acute distress. Well developed, well nourished. HEENT: Pupils are round and equally reacting to light. EOMI. No scleral icterus. No conjunctival pallor. Normocephalic, atraumatic. No pharyngeal erythema. No thyromegaly. CARDIOVASCULAR: S1 and S2 present. No murmurs, rubs, or gallops. PULMONARY: Chest is clear to auscultation, no wheezing or crackles. ABDOMEN: Soft, nontender, nondistended, normoactive bowel sounds. No palpable organomegaly. MUSCULOSKELETAL: No joint swelling or deformity. EXTREMITIES: No cyanosis, clubbing, or pedal edema. NEUROLOGICAL: Gross neurological examination did not reveal any focal deficits. SKIN: No rashes. - Labs CBC & Chem 7: 09/18/22 06:35 09/18/22 06:35 Labs: Abnormal Lab Results - Last 24 Hours (Table) 09/18/22 09/18/22 Range/Units 06:35 06:35 RBC 3.84 L (4.30-5.90) m/uL Hgb 12.9 L (13.0-17.5) gm/dL Hct 38.0 L (39.0-53.0) % Chloride 108 H (98-107) mmol/L Calcium 8.2 L (8.4-10.2) mg/dL Total Bilirubin 2.9 H (0.2-1.3) mg/dL Unconjugated Bilirubin 2.9 H (0.0-1.1) mg/dL Total Protein 5.8 L (6.3-8.2) g/dL Albumin 3.4 L (3.5-5.0) g/dL Assessment and Plan Assessment: 1. Weakness/debility - Patient brought to ER by family; is concerned she is unable to care for patient at home due to advancing dementia and confusion and multiple falls - Consult PT/OT for evaluation and recommendations 2. Multiple falls/adult failure to thrive; PT/OT consulted and recommendations are pending 3. Elevated troponin; EKG doesn't reveal any evidence of ischemia; follow-up troponins remained flat; no further evaluation recommended 4. Acute renal injury/dehydration; IV fluid hydration with normal saline at a rate of 75 mL an hour; we will monitor strict KASIE's, daily weights, renal function and electrolytes; avoid nephrotoxins and hypotension 5. Hyperbilirubinemia; etiology unclear - We will monitor liver enzymes; order hepatitis profile; plan to obtain hepatic ultrasound if no improvement 6. Hypertension; metoprolol 12.5 mg daily 7. History of TIA/CVA; patient is currently on Lipitor 40 mg daily at bedtime and Plavix 75 mg daily 8. BPH; Flomax 0.4 mg daily DVT prophylaxis; SCDs CODE STATUS; full code
[2022-09-18] MEDS: ATORVASTATIN 40 MG TAB PO SCH (20:11)
[2022-09-19] MEDS: SODIUM CHLORIDE 0.9% 1,000 ML IV SCH ×2 (05:41→18:53)
[2022-09-19 06:17] LABS: Albumin 3.8 g/dL (3.5-5.0); Calcium 8.7 mg/dL (8.4-10.2); Potassium 3.9 mmol/L (3.5-5.1); Total Protein 6.4 g/dL (6.3-8.2)
--- NOTE | 2022-09-19 08:58 | US ---
EXAMINATION TYPE: US abdomen limited DATE OF EXAM: 09/19/2022 COMPARISON: NONE CLINICAL HISTORY: elevated bilirubin. elevated labs. Exam limitations due to bowel gas. Patient unabl e to roll or hold breath. TECHNIQUE: Multiple sonographic images of the right upper quadrant are obtained. FINDINGS: EXAM MEASUREMENTS: Liver Length: 12.9 cm Gallbladder Wall: .2 cm CBD: .3 cm Right Kidney: 9.8 X 4.1 X 3.8 cm Pancreas: Obscured by bowel gas Liver: Limited due to bowel gas. Gallbladder: No stones seen Evidence for sonographic Willett's sign: No CBD: wnl Right Kidney: Mild Cortical thinning. IMPRESSION: Limited study. Mild cortical thinning of the right kidney with no other significant abnormality seen.
[2022-09-19] MEDS: TAMSULOSIN 0.4 MG CAP.ER.24H PO SCH (09:09)
[2022-09-19] MEDS: MAGNESIUM OXIDE 400 MG TAB PO SCH (09:09)
[2022-09-19] MEDS: CLOPIDOGREL 75 MG TAB PO SCH (09:09)
[2022-09-19] MEDS: METOPROLOL TARTRATE 12.5 MG TAB PO SCH (09:09)
--- NOTE | 2022-09-19 12:40 | CT ---
EXAMINATION TYPE: CT abdomen wo/w con DATE OF EXAM: 09/19/2022 COMPARISON: 09/26/2018 HISTORY: elevated bilirubin CT DLP: 1275 mGycm Automated exposure control for dose reduction was used. TECHNIQUE: Helical acquisition of images was performed from the lung bases through the top of iliac crest to include entire abdomen. CONTRAST: Performed without Oral Contrast and with IV Contrast, patient injected with 70 mL of Isovue 300. FINDINGS: There is a small infiltrate and tiny effusion in the right lung base. There is moderate cardiomegaly. Gallbladder is normal with no no gallstones, distention, wall thickening or pericholecystic fluid.. T here is no biliary ductal dilatation. There is no focal mass or organomegaly within the liver pancreas, spleen or adrenal glands. Kidneys excrete contrast promptly and symmetrically and there is no solid renal mass or necrosis. The re are scattered 3 to 4 mm nonobstructing renal calcifications which were seen previously. Caliber the abdominal aorta is normal. There is no retroperitoneal adenopathy or hemorrhage. The bowel loops are normal in caliber and there is no evidence of dilatation or obstruction. There is no free intraperitoneal air or fluid and no inflammatory changes are identified in the mesentery. No focal osseous abnormalities are seen. IMPRESSION: 1. Small right lung base infiltrate/effusion or atelectasis. 2. Multiple 3 -4 mm nonobstructing renal calcifications bilaterally unchanged compared to previous. 3. No acute changes within the abdomen.
--- NOTE | 2022-09-19 16:23 | P.PN ---
Subjective Progress Note Date: 09/19/22 Principal diagnosis: Weakness/multiple falls/debility/adult failure to thrive Hyperbilirubinemia Elevated troponins Mild renal injury/dehydration 81-year-old male presenting to the emergency Department with with concerns for cough and congestion. Symptoms have been present for several days. Patient does have occasional green sputum. Patient has congestion in his chest and head. Patient has severe dementia and is a poor historian. Near all history is taken from the . Patient also has been having increased falling over the past year, especially the past few days. is concerned she is no longer able to take care of him. Blood work completed in ED reveals a WBC of 4.8, hemoglobin 13.8 and platelet count of 196, sodium 137, potassium 4.7, BUN/creatinine of 24/1.3 and blood glucose of 90; total bilirubin of 2.3 CT of the head completed does not reveal any acute abnormality Chest x-ray shows no acute process EKG reveals sinus bradycardia with heart rate of 52 09/19/2022 Patient is seen and evaluated with at bedside; results of testing discuss Vital signs are reviewed and remained stable except for total bilirubin with continues to trend up and is at 3.0 this morning -- Hepatic ultrasound completed is nondiagnostic -- We will order CT of abdomen/hepatobiliary and make further recommendations accordingly Patient has been evaluated by PT/OT and is recommended subacute rehab - Family is agreeable; case management is on board for discharge planning Objective - Vital Signs Vital signs: Vital Signs Temp 97.9 F 09/19/22 03:19 Pulse 82 09/19/22 03:19 Resp 15 09/19/22 03:19 BP 148/97 09/19/22 03:19 Pulse Ox 94 L 09/19/22 03:19 FiO2 Intake & Output 09/18/22 09/19/22 09/19/22 18:59 06:59 18:59 Intake Total 550 Balance 550 Intake: Oral 550 Other: Voiding Method Diaper Diaper Incontinent Incontinent # Voids 1 # Bowel Movements 1 - Exam PHYSICAL EXAMINATION: GENERAL: The patient is alert and oriented x3, not in any acute distress. Well developed, well nourished. HEENT: Pupils are round and equally reacting to light. EOMI. No scleral icterus. No conjunctival pallor. Normocephalic, atraumatic. No pharyngeal erythema. No thyromegaly. CARDIOVASCULAR: S1 and S2 present. No murmurs, rubs, or gallops. PULMONARY: Chest is clear to auscultation, no wheezing or crackles. ABDOMEN: Soft, nontender, nondistended, normoactive bowel sounds. No palpable organomegaly. MUSCULOSKELETAL: No joint swelling or deformity. EXTREMITIES: No cyanosis, clubbing, or pedal edema. NEUROLOGICAL: Gross neurological examination did not reveal any focal deficits. SKIN: No rashes. - Labs CBC & Chem 7: 09/18/22 06:35 09/19/22 05:27 Labs: Abnormal Lab Results - Last 24 Hours (Table) 09/19/22 Range/Units 05:27 Total Bilirubin 3.0 H (0.2-1.3) mg/dL Assessment and Plan Assessment: 1. Weakness/debility - Patient brought to ER by family; is concerned she is unable to care for patient at home due to advancing dementia and confusion and multiple falls - Consult PT/OT for evaluation and recommendations 2. Multiple falls/adult failure to thrive; PT/OT consulted and recommendations are pending 3. Elevated troponin; EKG doesn't reveal any evidence of ischemia; follow-up troponins remained flat; no further evaluation recommended 4. Acute renal injury/dehydration; IV fluid hydration with normal saline at a rate of 75 mL an hour; we will monitor strict KASIE's, daily weights, renal function and electrolytes; avoid nephrotoxins and hypotension 5. Hyperbilirubinemia; etiology unclear - We will monitor liver enzymes; order hepatitis profile; plan to obtain hepatic ultrasound if no improvement 6. Hypertension; metoprolol 12.5 mg daily 7. History of TIA/CVA; patient is currently on Lipitor 40 mg daily at bedtime and Plavix 75 mg daily 8. BPH; Flomax 0.4 mg daily DVT prophylaxis; SCDs CODE STATUS; full code
[2022-09-19] MEDS: ATORVASTATIN 40 MG TAB PO SCH (20:13)
[2022-09-20] MEDS: SODIUM CHLORIDE 0.9% 1,000 ML IV SCH ×2 (06:56→20:07)
[2022-09-20 08:53] LABS: Albumin 3.7 g/dL (3.5-5.0); Bilirubin, Delta 0.1 mg/dL (0.0-0.2); Bilirubin,Unconjugated 3.7 mg/dL (0.0-1.1); Calcium 8.7 mg/dL (8.4-10.2); Potassium 4.2 mmol/L (3.5-5.1); Total Bilirubin 3.8 mg/dL (0.2-1.3); Total Protein 6.4 g/dL (6.3-8.2)
[2022-09-20] MEDS: CLOPIDOGREL 75 MG TAB PO SCH (09:08)
[2022-09-20] MEDS: TAMSULOSIN 0.4 MG CAP.ER.24H PO SCH (09:08)
[2022-09-20] MEDS: PIPERACILLIN-TAZOBACTAM 3.375 GM in SODIUM CHLORIDE 0.9% 100 ML IVPB SCH ×3 (09:08→23:33)
[2022-09-20] MEDS: MAGNESIUM OXIDE 400 MG TAB PO SCH (09:08)
[2022-09-20] MEDS: METOPROLOL TARTRATE 12.5 MG TAB PO SCH (09:08)
[2022-09-20] MEDS: ACETAMINOPHEN TAB 325 MG TAB PO PRN (09:08)
--- NOTE | 2022-09-20 10:28 | P.PN ---
Subjective Progress Note Date: 09/20/22 The patient is a 81-year-old male with a past medical history significant for hypertension, CVA, and advanced dementia. He presented to the emergency department on 09/16/22 with concerns by his for cough and congestion. Patient has also been having increased falls over the past year. is concerned she is no longer able to take care of him at home. 09/17 The patient was leaving his room via wheelchair for his MBSS. Spoke to him briefly, but he is very confused. Spoke to his , Bonnie, via telephone. She stated that the patient has been getting progressively weaker and more confused. He has had multiple falls. She is unable to care for him at home anymore. He has been doing things such as trying to drink ketchup and ranch dressing. He will put a fork in a glass of water and try and eat it. She is unable to leave him home alone and does not have any help. She states he does n ot sleep well at night and wander around. Then the dogs start barking and wake her up too. Bonnie has stated that she met with an health care attorney and has started the Medicaid application process. 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 Palliative care philosophies and services explained. She stated she is unsure at this time. She would like to think about it over the weekend. Will reach out to her again on Tuesday. Objective - Vital Signs Vital signs: Vital Signs Temp 98.4 F 09/20/22 03:48 Pulse 76 09/20/22 03:48 Resp 18 09/20/22 03:48 BP 140/81 09/20/22 03:48 Pulse Ox 97 09/20/22 08:53 FiO2 Intake & Output 09/19/22 09/20/22 09/20/22 18:59 06:59 18:59 Intake Total 240 120 Output Total 350 Balance 240 -230 Intake: Intake, IV Titration 150 Amount Sodium Chloride 0.9% 1, 150 000 ml @ 75 mls/hr IV . [id number] [facility] Rx#:[id number] Oral 90 120 Output: Urine 350 Other: Voiding Method Diaper Diaper Incontinent Incontinent # Voids 1 - Exam General: Well developed, well nourished. No acute distress. Chronically ill a ppearing HEENT: Head is atraumatic, normocephalic. CV: Heart regular in rate and rhythm Lungs: Respirations even and nonlabored. Abdomen/GI: Soft. No guarding, rigidity, or abdominal tenderness. Musculoskeletal/ Extremities: TRUJILLO, + generalized weakness Skin: Warm and dry - Labs CBC & Chem 7: 09/18/22 06:35 09/20/22 08:04 Labs: Abnormal Lab Results - Last 24 Hours (Table) 09/20/22 Range/Units 08:04 Chloride 108 H (98-107) mmol/L Glucose 103 H (74-99) mg/dL Total Bilirubin 3.8 H (0.2-1.3) mg/dL Unconjugated Bilirubin 3.7 H (0.0-1.1) mg/dL Assessment and Plan Assessment: Symptoms * Pain - score9 /10, Continue Tylenol prn * SOB - None, on RA * Insomnia - No * N/V - No * Anxiety - No * Depression - No * Confusion - Yes * Agitation - No * Hallucinations - No * Appetite/weight loss - The patient has had a decreased appetite, no recent weight loss. 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 Continue Dysphagia level 1 diet: pureed with 1:1 supervision as * Constipation - No * Incontinence - Yes, wears briefs * Itch - No * Cough - Yes Plan: Summary/Goals - Spoke with the patient's , Bonnie, this morning via telephone. She stated that the plan remains to send her to [facility] when he is discharged. She states that she used to work there and knows he will receive good care. She is not interested in having palliative care follow up with him there. She knows she may need hospice at some point, but prefers to take things one step at a time. Her priority is to get him settled at [facility]. She has my contact information if she decides she needs palliative care services in the future. Recommendations - [facility] Advanced Directives - none on file Code Status - DO NOT RESUSCITATE Thank you for this consultation Jana Leyva [facility] Palliative Care [place] [id number] Email: [email or web address]
[2022-09-20 10:41] LABS: Reticulocyte % 1.1 % (0.5-2.0)
--- NOTE | 2022-09-20 11:32 | P.PN ---
Subjective 81-year-old male presenting to the emergency Department with with concerns for cough and congestion. Symptoms have been present for several days. Patient does have occasional green sputum. Patient has congestion in his chest and head. Patient has severe dementia and is a poor historian. Near all history is taken from the . Patient also has been having increased falling over the past year, especially the past few days. is concerned she is no longer able to take care of him. Blood work completed in ED reveals a WBC of 4.8, hemoglobin 13.8 and platelet count of 196, sodium 137, potassium 4.7, BUN/creatinine of 24/1.3 and blood glucose of 90; total bilirubin of 2.3 CT of the head completed does not reveal any acute abnormality Chest x-ray shows no acute process EKG reveals sinus bradycardia with heart rate of 52 09/19/2022 Patient is seen and evaluated with at bedside; results of testing discuss Vital signs are reviewed and remained stable except for total bilirubin with continues to trend up and is at 3.0 this morning -- Hepatic ultrasound completed is nondiagnostic -- We will order CT of abdomen/hepatobiliary and make further recommendations accordingly Patient has been evaluated by PT/OT and is recommended subacute rehab - Family is agreeable; case management is on board for discharge planning 09/20/2022 This is a pleasant 81 years old male who was admitted initially because of coughing and dyspnea, I discussed with the over the phone today Mrs. Bonnie Serra and she told me that patient at baseline is very confused, he had a stroke on December 2020 is been more confused Since then, at baseline he does not ask for food and he does not states he is hungry, also he does not ask to be cleaned when he is soiling himself, is confused to the surrounding at baseline, although he knows his , he talks only with 1-2 word sentences. 3 months [facility] and he stopped doing that for the last 3 months. Also his been more falling over the last 3 months, however the said she wanted to come to the hospital when noticed that he has some cough and congestion and he cannot express himself so brought him to the hospital. When I talked to the she agrees that he is advanced/end stage dementia and she agrees with palliative/hospice consult but she wants him to be discharged tomorrow would halfway and this consult outpatient. Patient is afebrile, no leukocytosis but is mildly tachypneic. Chest x-rays negative CT of the abdomen and pelvis showing small infiltrate in the right lung base. We going to treat him with IV antibiotics for a couple days and possible discharge to halfway. Also he has some evidence of direct hyperbilirubinemia, hematology team on the case Objective - Vital Signs Vital signs: Vital Signs Temp 98.9 F 09/20/22 07:50 Pulse 83 09/20/22 07:50 Resp 18 09/20/22 07:50 BP 156/88 09/20/22 07:50 Pulse Ox 97 09/20/22 08:53 FiO2 Intake & Output 09/19/22 09/20/22 09/20/22 18:59 06:59 18:59 Intake Total 240 120 Output Total 350 Balance 240 -230 Intake: Intake, IV Titration 150 Amount Sodium Chloride 0.9% 1, 150 000 ml @ 75 mls/hr IV . [id number] [facility] Rx#:[id number] Oral 90 120 Output: Urine 350 Other: Voiding Method Diaper Diaper Diaper Incontinent Incontinent Incontinent # Voids 1 1 - Exam -GENERAL: The patient is alert and awake but confused and he is oriented x0, does not follow commands, not in any acute distress. Well developed, well nourished. HEENT: Pupils are round and equally reacting to light. EOMI. No scleral icterus. No conjunctival pallor. Normocephalic, atraumatic. No pharyngeal erythema. No thyromegaly. CARDIOVASCULAR: S1 and S2 present. No murmurs, rubs, or gallops. -PULMONARY: Chest is clear to auscultation, no wheezing or crackles. Mild tachypnea with chest congestion ABDOMEN: Soft, nontender, nondistended, normoactive bowel sounds. No palpable organomegaly. MUSCULOSKELETAL: No joint swelling or deformity. EXTREMITIES: No cyanosis, clubbing, or pedal edema. NEUROLOGICAL: Gross neurological examination did not reveal any focal deficits. SKIN: No rashes. no petechiae. - Labs CBC & Chem 7: 09/18/22 06:35 09/20/22 08:04 Labs: Abnormal Lab Results - Last 24 Hours (Table) 09/20/22 Range/Units 08:04 Chloride 108 H (98-107) mmol/L Glucose 103 H (74-99) mg/dL Total Bilirubin 3.8 H (0.2-1.3) mg/dL Unconjugated Bilirubin 3.7 H (0.0-1.1) mg/dL Assessment and Plan Assessment: 1. Advanced dementia/end-stage dementia with Weakness/debility and multiple falls - Patient will go to ECF. Upon discharge - Palliative consult discussed with the and she is agreeable but she wants to be done as an outpatient 2. Possible aspiration pneumonia, right lung base. Mild - Continue with Zosyn 3. in-direct hyperbilirubinemia, hematology consult 3. Elevated troponin; EKG doesn't reveal any evidence of ischemia; follow-up troponins remained flat; no further evaluation recommended 4. Edol-qt-ogkzgwng calories protein malnutrition 5. Hyperbilirubinemia; etiology unclear - We will monitor liver enzymes; order hepatitis profile; plan to obtain hepatic ultrasound if no improvement 6. Hypertension; metoprolol 12.5 mg daily 7. History of TIA/CVA; patient is currently on Lipitor 40 mg daily at bedtime and Plavix 75 mg daily 8. BPH; Flomax 0.4 mg daily 9. Chronic kidney disease stage II DVT prophylaxis; SCDs CODE STATUS; full code
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
--- NOTE | 2022-09-20 18:08 | CA ---
Transthoracic Echo Report Name: Sanjeev Serra Age: 81 Gender: M : 1940 Exam Date: 09/20/2022 14:10 Exam Location: [facility] Ht (in): 60 Wt (lb): 133 Ordering Physician: Armand Disla MD Attending/Referring Phys: [id number], Naif Jockey Room Custodian Chandu Milan RDCS Procedure CPT: Indications: Rule out heart disease Cardiac Hx: pt supine during exam. Technical Quality: Very technically difficult study Contrast 1: Total Dose (mL): Contrast 2: Total Dose (mL): MEASUREMENTS (Male / Female) Normal Values 2D ECHO LVOT Diameter 2.1 cm M-MODE Aortic Root Diameter MM 2.7 cm LA Systolic Diameter MM 4.9 cm LA Ao Ratio MM 1.8 AV Cusp Separation MM 0.8 cm DOPPLER AV Peak Velocity 299.8 cm/s AV Peak Gradient 36.0 mmHg AV Mean Velocity 226.6 cm/s AV Mean Gradient 22.3 mmHg AV Velocity Time Integral 65.1 cm AI Peak Velocity 470.1 cm/s AI Peak Gradient 88.4 mmHg AI Pressure Half Time 293.6 ms LVOT Peak Velocity 84.5 cm/s LVOT Peak Gradient 2.9 mmHg AV Area Cont Eq pk 1.0 cm??? MV Area PHT 8.7 cm??? MR Peak Velocity 347.0 cm/s MR Peak Gradient 48.2 mmHg Mitral E Point Velocity 127.3 cm/s Mitral A Point Velocity 73.4 cm/s Mitral E to A Ratio 1.7 MV Deceleration Time 87.3 ms TR Peak Velocity 231.1 cm/s TR Peak Gradient 21.4 mmHg FINDINGS Left Ventricle Mild concentric left ventricular hypertrophy. Right Ventricle Normal right ventricular size and function. Normal right ventricular global systolic function. Right Atrium Normal right atrial size. Left Atrium Moderate left atrial dilatation. Mitral Valve Mitral valve thickened. No mitral stenosis. Mild mitral regurgitation. Aortic Valve Diffuse thickening of the aortic valve cusps with reduced excursion. Aortic valve stenosis Tricuspid Valve Mild tricuspid regurgitation. Pulmonic Valve Pulmonic valve not well visualized. Pericardium No pericardial or pleural effusion. Aorta Normal size aortic root and proximal ascending aorta. CONCLUSIONS Normal LV function Left atrial enlargement I aortic sclerosis with severe restriction in leaflet mobility with a peak gradient of 36 mm and a mean gradient of 22 mm consistent with moderate aortic stenosis Previewed by: Dr. Jeremi Fernandes MD (Electronically Signed) Final Date: 20 September 2022 18:07
[2022-09-20] MEDS: ATORVASTATIN 40 MG TAB PO SCH (20:07)
[2022-09-21] MEDS: CLOPIDOGREL 75 MG TAB PO SCH (08:58)
[2022-09-21] MEDS: MAGNESIUM OXIDE 400 MG TAB PO SCH (08:58)
[2022-09-21] MEDS: TAMSULOSIN 0.4 MG CAP.ER.24H PO SCH (08:58)
[2022-09-21] MEDS: METOPROLOL TARTRATE 12.5 MG TAB PO SCH (08:58)
[2022-09-21] MEDS: PIPERACILLIN-TAZOBACTAM 3.375 GM in SODIUM CHLORIDE 0.9% 100 ML IVPB SCH ×2 (08:59→18:02)
--- NOTE | 2022-09-21 10:00 | P.PN ---
Subjective 81-year-old male presenting to the emergency Department with with concerns for cough and congestion. Symptoms have been present for several days. Patient does have occasional green sputum. Patient has congestion in his chest and head. Patient has severe dementia and is a poor historian. Near all history is taken from the . Patient also has been having increased falling over the past year, especially the past few days. is concerned she is no longer able to take care of him. Blood work completed in ED reveals a WBC of 4.8, hemoglobin 13.8 and platelet count of 196, sodium 137, potassium 4.7, BUN/creatinine of 24/1.3 and blood glucose of 90; total bilirubin of 2.3 CT of the head completed does not reveal any acute abnormality Chest x-ray shows no acute process EKG reveals sinus bradycardia with heart rate of 52 09/19/2022 Patient is seen and evaluated with at bedside; results of testing discuss Vital signs are reviewed and remained stable except for total bilirubin with continues to trend up and is at 3.0 this morning -- Hepatic ultrasound completed is nondiagnostic -- We will order CT of abdomen/hepatobiliary and make further recommendations accordingly Patient has been evaluated by PT/OT and is recommended subacute rehab - Family is agreeable; case management is on board for discharge planning 09/20/2022 This is a pleasant 81 years old male who was admitted initially because of coughing and dyspnea, I discussed with the over the phone today Mrs. Bonnie Serra and she told me that patient at baseline is very confused, he had a stroke on December 2020 is been more confused Since then, at baseline he does not ask for food and he does not states he is hungry, also he does not ask to be cleaned when he is soiling himself, is confused to the surrounding at baseline, although he knows his , he talks only with 1-2 word sentences. 3 months ago [facility] and he stopped doing that for the last 3 months. Also his been more falling over the last 3 months, however the said she wanted to come to the hospital when noticed that he has some cough and congestion and he cannot express himself so brought him to the hospital. When I talked to the she agrees that he is advanced/end stage dementia and she agrees with palliative/hospice consult but she wants him to be discharged tomorrow would [facility] and this consult outpatient. Patient is afebrile, no leukocytosis but is mildly tachypneic. Chest x-rays negative CT of the abdomen and pelvis showing small infiltrate in the right lung base. We going to treat him with IV antibiotics for a couple days and possible discharge to [facility]. Also he has some evidence of direct hyperbilirubinemia, hematology team on the case 09/21/2022 Patient clinically looks the same. Patient has severe dementia. As per my discussion with the patient daughter yesterday ordered for looks patient has advanced dementia and getting it closed under stage dementia. He is not already there. Patient also with possible aspiration pneumonia and with ohgallstone and elevated 0.46. No fever or leukocytosis significant elevation. However patient started on Zosyn and showing clinical improvement We will check chest x-ray tomorrow and if it's improved and may be considered for discharge. Patient was some evidence of elevated direct bilirubin, demand manager on the case Echocardiogram showing normal LV function with moderate aortic stenosis. Patient was not chest pain. Patient can follow-up as an outpatient. I think the patient is eligible for palliative/hospice consult and care, I discussed this with the patient daughter and she is agreeable but wants to do with as an outpatient. Objective - Vital Signs Vital signs: Vital Signs Temp 98.2 F 09/21/22 04:00 Pulse 69 09/21/22 04:00 Resp 18 09/21/22 04:00 BP 102/64 09/21/22 04:00 Pulse Ox 93 L 09/21/22 04:00 FiO2 Intake & Output 09/20/22 09/21/22 09/21/22 18:59 06:59 18:59 Intake Total 360 118 Balance 360 118 Intake: Oral 360 118 Other: Voiding Method Diaper Diaper Incontinent Incontinent # Voids 0 3 - Exam -GENERAL: The patient is alert and awake but confused and he is oriented x0, does not follow commands, not in any acute distress. Well developed, well nourished. HEENT: Pupils are round and equally reacting to light. EOMI. No scleral icterus. No conjunctival pallor. Normocephalic, atraumatic. No pharyngeal erythema. No thyromegaly. CARDIOVASCULAR: S1 and S2 present. No murmurs, rubs, or gallops. -PULMONARY: Chest is clear to auscultation, no wheezing or crackles. Mild tachypnea with chest congestion ABDOMEN: Soft, nontender, nondistended, normoactive bowel sounds. No palpable organomegaly. MUSCULOSKELETAL: No joint swelling or deformity. EXTREMITIES: No cyanosis, clubbing, or pedal edema. NEUROLOGICAL: Gross neurological examination did not reveal any focal deficits. SKIN: No rashes. no petechiae. - Labs CBC & Chem 7: 09/18/22 06:35 09/20/22 08:04 Labs: Abnormal Lab Results - Last 24 Hours (Table) 09/20/22 Range/Units 08:04 Procalcitonin 0.46 H (0.02-0.09) ng/mL Assessment and Plan Assessment: 1. Advanced dementia/end-stage dementia with Weakness/debility and multiple falls - Patient will go to ECF. Upon discharge - Palliative consult discussed with the and she is agreeable but she wants to be done as an outpatient 2. Possible aspiration pneumonia, right lung base. Mild - Continue with Zosyn 3. in-direct hyperbilirubinemia, hematology consult 3. Elevated troponin; EKG doesn't reveal any evidence of ischemia; follow-up troponins remained flat; no further evaluation recommended 4. Mldl-ig-ukghbuhz calories protein malnutrition 5. Hyperbilirubinemia; etiology unclear - We will monitor liver enzymes; order hepatitis profile; plan to obtain hepatic ultrasound if no improvement 6. Hypertension; metoprolol 12.5 mg daily 7. History of TIA/CVA; patient is currently on Lipitor 40 mg daily at bedtime and Plavix 75 mg daily 8. BPH; Flomax 0.4 mg daily 9. Chronic kidney disease stage II DVT prophylaxis; SCDs CODE STATUS; full code
[2022-09-21 10:17] LABS: Basophils % (A) 0 %; Eosinophils # (A) 0.2 k/uL (0-0.7); Eosinophils % (A) 2 %; HCT 38.8 % (39.0-53.0); HGB 13.2 gm/dL (13.0-17.5); Lymphocytes # (A) 0.6 k/uL (1.0-4.8); Lymphocytes % (A) 7 %; MCH 34.1 pg (25.0-35.0); MCV 100.2 fL (80.0-100.0); Mean Platelet Volume 7.8; Monocytes # (A) 0.4 k/uL (0-1.0); Monocytes % (A) 5 %; Neutrophils # (A) 7.5 k/uL (1.3-7.7); Neutrophils % (A) 85 %; Platelet Count 190 k/uL (150-450); RBC 3.87 m/uL (4.30-5.90); WBC 8.8 k/uL (3.8-10.6)
[2022-09-21 10:27] LABS: Calcium 8.4 mg/dL (8.4-10.2)
[2022-09-21 10:49] VITALS: BMI 26.0
--- NOTE | 2022-09-21 12:29 | CDI ---
Documentation Clarification Form Date: 09/21/2022 12:12:48 PM From: Telma Gonzalez RN CCDS Admit Date: 09/20/2022 3:16:00 PM Patient Name: Sanjeev Serra Visit Number: [id number] Discharge Date: ATTENTION: The Clinical Documentation Specialists (CDI) and [facility] Coding Staff appreciate your assistance in clarifying documentation. Please respond to the clarification below the line at the bottom and electronically sign. The CDI & [facility] Coding staff will review the response and follow-up if needed. Please note: Queries are made part of the Legal Health Record. If you have any questions, please contact the author of this message via ITS. Dr. Armand Benjamin Buttock, stage 1 pressure ulcer is documented by Nursing 09/16, Pressure injury assessment. Based on this information and the findings below, is there an additional diagnosis that is clinically appropriate for this patient? History/Risk Factors: 81-year-old male presents to the ED with cough and congestion for several days with occasional green sputum. Medical history: Advanced dementia, BPH, CKD, and HTN. 09/17, H&P. Clinical Indicators: Location: Buttock Wound description: Not blanchable Erythema Treatment: Absorbent under pad, Check hourly, Turn 2Q, Barrier cream. Is there an additional diagnosis that is clinically appropriate for this patient? [ ] Buttock Pressure Ulcer Stage 1 [ ] Other condition, please specify [ ] Unable to determine Clinical Definitions: Stage 1 Pressure Ulcer: intact skin, non-blanching redness of local area Stage 2 Pressure Ulcer: Partial thickness, loss of dermis, pink wound bed Stage 3 Pressure Ulcer: Full thickness tissue loss Stage 4 Pressure Ulcer: Full thickness tissue loss with exposed bone, tendon, or muscle. Unstageable pressure ulcer: Full thickness tissue loss in which the base of the ulcer is covered by slough (yellow, [place]a, sheppard, green or brown) and/or eschar ([place]a, brown or black) in the wound bed. (Template Last Revised: October 2020) Buttock Pressure Ulcer Stage 1 MTDD
[2022-09-21] MEDS: ATORVASTATIN 40 MG TAB PO SCH (21:24)
[2022-09-21] MEDS: ACETAMINOPHEN TAB 325 MG TAB PO PRN (21:24)
[2022-09-21] MEDS: SODIUM CHLORIDE 0.9% 1,000 ML IV SCH ×2 (21:25→21:31)
[2022-09-22] MEDS: PIPERACILLIN-TAZOBACTAM 3.375 GM in SODIUM CHLORIDE 0.9% 100 ML IVPB SCH ×2 (00:32→08:38)
--- NOTE | 2022-09-22 07:02 | XR ---
EXAMINATION TYPE: XR chest 1V DATE OF EXAM: 09/22/2022 6:31 AM COMPARISON: Chest radiographs from 09/16/2022. TECHNIQUE: XR chest 1V Frontal view of the chest. CLINICAL INDICATION:Male, 81 years old with history of sob; FINDINGS: Lungs/Pleura: There is no evidence of pleural effusion, focal consolidation, or pneumothorax. Chroni c senescent parenchymal changes. Pulmonary vascularity: Unremarkable. Heart/mediastinum: Cardiomediastinal silhouette is stable. Musculoskeletal: No acute osseous pathology. Degenerative changes of the visualized spine. Other findings: Loop recorder overlies the left chest. IMPRESSION: Chronic changes without evidence for acute process.
[2022-09-22 08:12] LABS: Albumin 3.3 g/dL (3.5-5.0); Bilirubin, Delta 0.3 mg/dL (0.0-0.2); Bilirubin,Unconjugated 2.4 mg/dL (0.0-1.1); Calcium 8.3 mg/dL (8.4-10.2); Potassium 3.9 mmol/L (3.5-5.1); Total Bilirubin 2.7 mg/dL (0.2-1.3)
[2022-09-22 08:34] VITALS: BP 130/72; PULSE 80; TEMP 98.5
[2022-09-22] MEDS: TAMSULOSIN 0.4 MG CAP.ER.24H PO SCH (08:38)
[2022-09-22] MEDS: MAGNESIUM OXIDE 400 MG TAB PO SCH (08:38)
[2022-09-22] MEDS: CLOPIDOGREL 75 MG TAB PO SCH (08:38)
[2022-09-22] MEDS: METOPROLOL TARTRATE 12.5 MG TAB PO SCH (08:38)
[2022-09-22 08:42] LABS: Basophils % (A) 1 %; Eosinophils # (A) 0.4 k/uL (0-0.7); Eosinophils % (A) 6 %; HCT 38.4 % (39.0-53.0); HGB 12.6 gm/dL (13.0-17.5); Lymphocytes % (A) 13 %; MCH 32.9 pg (25.0-35.0); MCHC 32.8 g/dL (31.0-37.0); MCV 100.1 fL (80.0-100.0); Monocytes # (A) 0.5 k/uL (0-1.0); Monocytes % (A) 6 %; Neutrophils # (A) 5.3 k/uL (1.3-7.7); Neutrophils % (A) 72 %; Platelet Count 222 k/uL (150-450); RBC 3.84 m/uL (4.30-5.90); WBC 7.3 k/uL (3.8-10.6)
[2022-09-22 09:34] VITALS: RESP 16
--- NOTE | 2022-09-22 11:07 | P.DS ---
Providers Date of admission: 09/20/22 15:16 Attending physician: Fredy Dover MD Consults: 09/16/22 19:33 Consult to Palliative Care Routine Consulting Provider: Jana Leyva Consult Reason/Comments: dementia, frequent falls, Do you want consulting provider notified?: Yes 09/20/22 09:10 Consult Physician Urgent Consulting Provider: Cheko Duenas Consult Reason/Comments: unconjugated hyperbilirubinemia Do you want consulting provider notified?: Yes Primary care physician: [facility] Course: Diagnoses: 1. Advanced dementia/end-stage dementia with Weakness/debility and multiple falls 2. Possible aspiration pneumonia, right lung base. Mild 3. in-direct hyperbilirubinemia, hematology consult 3. Elevated troponin; EKG doesn't reveal any evidence of ischemia; follow-up troponins remained flat; no further evaluation recommended 4. Ecbt-an-tyiglems calories protein malnutrition 5. Hyperbilirubinemia; improving 6. Hypertension; 7. History of TIA/CVA; 8. BPH; Flomax 9. Chronic kidney disease stage II 10. Mild transaminitis, suspected secondary to medication Hospital course: 81-year-old male presenting to the emergency Department with with concerns for cough and congestion. Symptoms have been present for several days. Patient does have occasional green sputum. His respiratory symptoms was the main concerns the brought him to the hospital. I talked to the patient looks like quite advanced dementia. Aspiration pneumonia suspected and he was started on Zosyn. Patient showed interval improvement and currently he is saturating well on room air at 97%, no significant tachypnea, no fever, no leukocytosis. Repeat chest x-ray today showing no consolidation. Temporary to CAT scan of the abdomen done a few days ago showing right lower lobe infiltrate. Patient currently on Zosyn and he can be switched to oral Augmentin upon discharge. Also he has some evidence of an direct hyperbilirubinemia, evaluated by clam grower team, level improved today 3.8 down to 2.7 and patient is asymptomatic with no abdominal pain. His liver enzymes slightly trending up, therefore we got his Lipitor dose 40 down to 20 mg with recommendation for close monitoring of his liver enzymes and bilirubin every 2-3 days till resolution Patient currently sitting up in bed, looks comfortable, denies any specific symptoms, no tachypnea/dyspnea, no chest pain. No abdominal pain. He tolerates that well 75-100% Patient cleared by hematology team for discharge Problems and management plan were discussed with the patient and he verbalized understanding and acceptance Patient was found stable and can be discharged home in guarded prognosis however he needs follow-up as an outpatient. Patient was instructed to follow up with PCP Dr. Maldonado within one week and patient agrees We recommend palliative consult as an outpatient, discussed with the family and they are agreeable Patient was recommended to follow up with clam grower Dr. Duenas in 1 week after discharge Physical exam -Gen: patient is a awake alert but confused, no distress CVS: S1-S2, RRR, no murmur Lungs: B/L CTA, no wheezing Abdomen: soft, no distention, no tenderness, positive bowel sounds Extremity: no leg edema or induration Time spent more than 35 minutes Plan - Discharge Summary Discharge Rx Participant: No New Discharge Prescriptions: No Action Losartan Potassium 100 mg PO DAILY hydroCHLOROthiazide [Hydrodiuril] 12.5 mg PO DAILY 30 Days #30 cap Atorvastatin [Lipitor] 40 mg PO HS 30 Days #30 tab Acetaminophen/Diphenhydramine [Tylenol PM 500-25mg] 1 tab PO HS Apixaban [Eliquis] 2.5 mg PO HS Clopidogrel [Plavix] 75 mg PO DAILY 20 Days #20 tab Tamsulosin [Flomax] 0.4 mg PO DAILY Metoprolol Tartrate [Lopressor] 12.5 mg PO DAILY Magnesium Oxide [Stoddard] 500 mg PO DAILY Discharge Medication List Losartan Potassium 100 mg PO DAILY 01/01/21 [History] Atorvastatin [Lipitor] 40 mg PO HS 30 Days #30 tab 01/05/21 [Rx] Clopidogrel [Plavix] 75 mg PO DAILY 20 Days #20 tab 01/05/21 [Rx] hydroCHLOROthiazide [Hydrodiuril] 12.5 mg PO DAILY 30 Days #30 cap 01/05/21 [Rx] Acetaminophen/Diphenhydramine [Tylenol PM 500-25mg] 1 tab PO HS 09/16/22 [History] Apixaban [Eliquis] 2.5 mg PO HS 09/16/22 [History] Magnesium Oxide [Stoddard] 500 mg PO DAILY 09/16/22 [History] Metoprolol Tartrate [Lopressor] 12.5 mg PO DAILY 09/16/22 [History] Tamsulosin [Flomax] 0.4 mg PO DAILY 09/16/22 [History] Follow up Appointment(s)/Referral(s): Shala Osorio MD [Primary Care Provider] - 1-2 days
[2022-09-22] MEDS ORDERED: ATORVASTATIN 20 MG TAB PO SCH (21:00)
--- NOTE | 2022-09-23 22:53 | CDI ---
Documentation Clarification Form Date: 09/23/2022 10:32:50 PM From: Deanne Mata Phone: Admit Date: 09/20/2022 3:16:00 PM Patient Name: Sanjeev Serra Visit Number: [id number] Discharge Date: 09/22/2022 1:23:00 PM ATTENTION: The Clinical Documentation Specialists (CDI) and [facility] Coding Staff appreciate your assistance in clarifying documentation. Please respond to the clarification below the line at the bottom and electronically sign. The CDI & [facility] Coding staff will review the response and follow-up if needed. Please note: Queries are made part of the Legal Health Record. If you have any questions, please contact the author of this message via ITS. Dr. Armand Disla Malnutrition is documented per the DC Summary. Additional clarification regarding the severity of malnutrition is requested. History/Risk Factors: 81yo M, enddementia, debility, falls, asp PNA, hyperbilirubinemia, elevated troponin, malnutrition, HTN, Hx TIA/CVA, BPH, CKD II, transaminitis d/t medication Clinical Indicators: Current BMI: 26.0 Weight Loss: The patient has had a decreased appetite,norecent weight loss. Dysphagia- Yes, [employer] consulted, MBSSpending Treatment: DC to [facility] Please clarify the type of malnutrition, if known: [ ] Mild Protein-Calorie Malnutrition [ ] Moderate Protein-Calorie Malnutrition [ ] Other condition, please specify [ ] Unable to Determine (Template Last Revised: October 2020) Moderate Protein-Calorie Malnutrition MTDD
== END 2022-09-22 13:23 | DRG 178 ==
LOC: EC 10:30 → 3SCARD 13:24 → OBSVTOIN 09-20 15:16
PROVIDERS: ADMIT Internal Medicine; ATTEND Internal Medicine
DX: J69.0 Pneumonitis due to inhalation of food and vomit (principal); E44.0 Moderate protein-calorie malnutrition; N17.9 Acute kidney failure, unspecified; F03.C18 Unspecified dementia, severe, with other behavioral disturbance; R17 Unspecified jaundice; L89.301 Pressure ulcer of unspecified buttock, stage 1; R62.7 Adult failure to thrive; I13.10 Hypertensive heart and chronic kidney disease without heart failure, with stage 1 through stage 4 chronic kidney disease, or unspecified chronic kidney disease; I08.3 Combined rheumatic disorders of mitral, aortic and tricuspid valves; E86.0 Dehydration; R00.1 Bradycardia, unspecified; R29.6 Repeated falls; R77.8 Other specified abnormalities of plasma proteins; N18.2 Chronic kidney disease, stage 2 (mild); R13.10 Dysphagia, unspecified; R32 Unspecified urinary incontinence; Z66 Do not resuscitate; E80.4 Gilbert syndrome; R53.81 Other malaise; N40.0 Benign prostatic hyperplasia without lower urinary tract symptoms; R74.01 Elevation of levels of liver transaminase levels; T50.905A Adverse effect of unspecified drugs, medicaments and biological substances, initial encounter; Z74.8 Other problems related to care provider dependency; Z20.822 Contact with and (suspected) exposure to COVID-19; Z91.83 Wandering in diseases classified elsewhere; Z79.82 Long term (current) use of aspirin; Z79.02 Long term (current) use of antithrombotics/antiplatelets; Z79.899 Other long term (current) drug therapy; Z86.73 Personal history of transient ischemic attack (TIA), and cerebral infarction without residual deficits; Z91.81 History of falling; Z95.818 Presence of other cardiac implants and grafts; Z79.01 Long term (current) use of anticoagulants; Z68.26 Body mass index [BMI] 26.0-26.9, adult
CPT/HCPCS: 36415; 70450; 71045; 71046; 74170; 74230; 76705; 80048; 80053; 80076; 81003; 82248; 83010; 83605; 83615; 83735; 84145; 84439; 84443; 84481; 84484; 85025; 85045; 85610; 85730; 87636; 93005; 93306; 94760; 96360; 96361; 99285